=== PATIENT | male | born 1975 | race Caucasian/White ===

== ENCOUNTER 2024-04-23 10:33 | Emergency (ER) | payer BC, SELFPAY ==
[2024-04-23 10:38] VITALS: BP 136/74; PULSE 75; RESP 14; TEMP 36.6; O2SAT 97
--- NOTE | 2024-04-23 11:18 | DI.RAD_ITS ---
Exam(s) XR KNEE RT 3V AP,LAT,CM EXAM: XR KNEE RT 3V AP,LAT,CM CLINICAL HISTORY: KNEE PAIN. TECHNIQUE: 2D digital imaging was performed. Three views. COMPARISON: No exams were available for comparison FINDINGS: BONES: No acute fracture is present. No bony destructive lesion is seen. JOINTS: The knee is normally aligned. No joint effusion is seen. Joint spaces are maintained. SOFT TISSUE: Normal. IMPRESSION: Unremarkable radiographs of the right knee. DATA REPOSITORY: RADIATION DOSE DELIVERED:
--- NOTE | 2024-04-23 11:30 | ED.GENADUL_ITS ---
Discharge Plan Disposition Patient Disposition: Home Discharge Details Clinical Impression: Gastrocnemius strain, Knee pain Primary Care Provider: Kathi,Local ED Provider: Nigel Gauthier Home Meds and New Rx's Prescriptions: No Action No Known Home Meds Discharge Instructions Instructions: Knee pain Additional Instructions: your xray doesn't show a bone fracture you may have strained or injured a ligament or tendon, wear knee brace for comfort and support use crutches as needed to walk, weight bearing as tolerated follow up with your PCP at home for MRI if your symptoms aren't improving. HPI General Date/Time Provider Initiated Documentation: 04/23/24 10:44 . Limitations to Documentation: no limitations . Information obtained by: patient . HPI Narrative: 49-year-old gentleman without significant past medical history presents for evaluation of right knee pain. Reports pain in the upper part of his right posterior calf and back of his knee. He states that yesterday while skiing he fell forward and he did not him out of this finding. Reports that yesterday he had difficulty with walking and putting weight on his leg, this is improved today he has been icing and taking medication for pain relief. Related Data Home Medications ?Medication ?Instructions ?Recorded ?Confirmed Unknown [No Known Home Meds] 04/23/24 04/23/24 Allergies Allergy/AdvReac Type Severity Reaction Status Date / Time No Known Allergies Allergy Verified 04/23/24 10:44 General Stated Complaint: Orthopedic RAQUEL: 4 Exam Narrative Exam Narrative: Review of Systems: All systems reviewed & are unremarkable except as noted in HPI and below Well-developed, no acute distress RRR Unlabored respiratory effort Right knee without obvious deformity, no effusion or significant instability, Achilles intact, gastroc intact, there is tenderness at the proximal aspect of the gastroc neurovascularly intact distally Course Vital Signs Vital signs: Vital Signs Temperature 36.6 C 04/23/24 10:38 Pulse 75 04/23/24 10:38 Respiratory Rate 14 04/23/24 10:38 Blood Pressure 136/74 04/23/24 10:38 Pulse Oximetry 97 04/23/24 10:38 Temperature 36.6 C 04/23/24 10:38 Temperature Source Skin 04/23/24 10:38 Pulse 75 04/23/24 10:38 Respiratory Rate 14 04/23/24 10:38 Blood Pressure 136/74 04/23/24 10:38 Pulse Oximetry 97 04/23/24 10:38 Oxygen Delivery Method Room Air 04/23/24 10:38 Oxygen Flow Rate 0 04/23/24 10:38 Pain Level 5 04/23/24 10:38 Comment Pt states pain = 0 at rest; 5 w/ movement 04/23/24 10:38 Medical Decision Making Urgent evaluation of right knee injury. Initial differential includes strain, sprain, ligamentous injury, muscular tear. No obvious fracture or dislocation on examination. No neurovascular damage. X-ray of right knee was obtained reviewed and independently interpreted: No effusion, no acute bony process. Patient was offered a knee immobilizer and crutches however he declined these he does not live in the area and is returning home to [place]. I do recommend that he follow-up with his doctor there if symptoms do not improve as he would likely benefit from an MRI of his knee. Quality:SDOH Health Related Social Needs: No Data to Display PFSH All Active Problems Knee pain (Acute) Gastrocnemius strain (Acute) Social History Smoking/Tobacco Use Status: Never Smoking risk assessment performed?: Yes Alcohol Intake: never Drug use: Never Substance use type: does not use Do you feel safe at home: Yes Do you feel safe in your relationship?: Yes
== END 2024-04-23 11:26 | disposition home or self-care (01) ==
LOC: ER 11:26
PROVIDERS: Emergency Provider Emergency Medicine
DX: S86.111A Strain of other muscle(s) and tendon(s) of posterior muscle group at lower leg level, right leg, initial encounter (principal); M25.561 Pain in right knee; V00.321A Fall from snow-skis, initial encounter
CPT/HCPCS: 73562; 99283